=== PATIENT | female | born 1965 | race Caucasian/White ===

== ENCOUNTER 2023-06-01 20:46 | Emergency (ER) | payer MEDICAID ==
[2023-06-01] MEDS ORDERED: Sodium Chloride 0.9% 10 ML Syringe FLUSH PRN (20:51)
[2023-06-01 21:15] LABS: BASOPHILS PERCENT AUTO 0.6 % (0.2-1.5); EOSINOPHILS PERCENT AUTO 0.3 % (0.6-8.1); HEMATOCRIT 41.5 % (34.2-48.2); HEMOGLOBIN 14.5 g/dL (11.4-15.5); MEAN CORPUSCULAR HEMOGLOBIN 31.7 pg (23.9-33.9); MEAN CORPUSCULAR HGB CONC 34.9 g/dL (31.9-34.8); MEAN CORPUSCULAR VOLUME 90.9 fL (76.7-100.5); MEAN PLATELET VOLUME 6.8 fL (7.1-12.4); MONOCYTES ABSOLUTE AUTO 0.4 x10-3/uL (0.3-1.0); MONOCYTES PERCENT AUTO 4.4 % (4.4-15.7); NEUTROPHILS ABSOLUTE AUTO 5.3 x10-3/uL (1.5-6.3); NEUTROPHILS PERCENT AUTO 60.7 % (30.8-76.2); PLATELET COUNT,PLT 361 x10(3)uL (151-488); RED BLOOD CELL COUNT 4.57 x10(6)uL (3.60-5.20); RED CELL DISTRIBUTION WIDTH 12.9 % (12.3-16.5); WHITE BLOOD CELL COUNT,WBC 8.8 x10-3/uL (3.0-10.3)
[2023-06-01 21:19] LABS: BLOOD UREA NITROGEN,BUN 18 mg/dL (7-18); BUN/CREATININE RATIO 13.8 (9-20); CALCIUM 9.1 mg/dL (8.6-10.2); CARBON DIOXIDE,CO2 19 mmol/L (21-32); CHLORIDE,CL 101 mmol/L (100-110); CREATININE 1.3 mg/dL (0.55-1.02); EST CRCL DRUG DOSING (CG) 46.99 mL/min; ESTIMATED GFR 48 mL/min (>60); GLUCOSE RANDOM 251 mg/dL (80-116); POTASSIUM,K 3.4 mmol/L (3.5-5.3); SODIUM,NA 140 mmol/L (135-145)
[2023-06-01 21:28] LABS: INR 0.96 (1.00-1.24)
[2023-06-01] MEDS: Sodium Chloride 0.9% 1,000 ML IV SCH ×2 (21:30→22:09)
[2023-06-01 21:31] LABS: A/G RATIO 1.2; ALANINE AMINOTRANSFERASE,ALT 28 U/L (12-36); ALBUMIN 3.9 g/dL (3.5-5.2); ALKALINE PHOSPHATASE 149 IU/L (56-112); ASPARTATE AMNIOTRANSFERASE,AST 20 IU/L (5-25); BILIRUBIN TOTAL 0.5 mg/dL (0.1-1.3); PROTEIN TOTAL,TP 7.2 g/dL (6.0-8.0)
[2023-06-01 21:32] LABS: ETHANOL BLOOD MEDICAL 0.12 % (<0.03)
[2023-06-01] MEDS: Ondansetron 4 MG/2 ML SDV IVPUSH ONE (21:33)
[2023-06-01 21:34] LABS: TROPONIN I < 4.0 pg/mL (4.0-60.3)
[2023-06-01] MEDS: Magnesium Sulfate/Water 2 GM in Premix Bag 1 BAG IV ONE (21:57)
[2023-06-01] MEDS ORDERED: Magnesium Sulfate/Water 2 GM in Premix Bag 1 BAG IV ONE (22:00)
[2023-06-01] MEDS: Potassium Chloride 20 MEQ Tab.ER PO ONE (23:49)
== END 2023-06-02 00:12 | disposition home or self-care (01) ==
LOC: FB.ED 20:46
DX: R55 Syncope and collapse (principal); F10.129 Alcohol abuse with intoxication, unspecified; E86.0 Dehydration
CPT/HCPCS: 36415; 70450; 71045; 80053; 80307; 83735; 83880; 84484; 85025; 85610; 85730; 87040; 93005; 93010; 96365; 96366; 96375; 99284; 99285-25; A9270-GY; J2405; J3475; J7030

== ENCOUNTER 2023-10-19 14:29 | Emergency (ER) | payer OTHER, MEDICAID ==
[2023-10-19] MEDS: Ketorolac 30 MG/ML SDV IM ONE (15:02)
[2023-10-19] MEDS: Cyclobenzaprine 10 MG Tab PO ONE (15:02)
[2023-10-19] MEDS: traMADol 50 MG Tab PO ONE (15:03)
== END 2023-10-19 15:16 | disposition home or self-care (01) ==
LOC: FB.ED 14:29
DX: S20.211A Contusion of right front wall of thorax, initial encounter (principal); I10 Essential (primary) hypertension; E11.9 Type 2 diabetes mellitus without complications; Z79.899 Other long term (current) drug therapy; Z79.84 Long term (current) use of oral hypoglycemic drugs; Z88.5 Allergy status to narcotic agent; Z88.6 Allergy status to analgesic agent; V49.40XA Driver injured in collision with unspecified motor vehicles in traffic accident, initial encounter; Y92.410 Unspecified street and highway as the place of occurrence of the external cause
CPT/HCPCS: 96372; 99283; A9270; J1885

== ENCOUNTER 2024-04-13 07:48 | Day surgery (SDC) | payer MEDICAID ==
[~2024-04-13 07:48] MED LIST: Sodium Chloride 0.9% 10 ML Syringe FLUSH PRN
[2024-04-13] MEDS ORDERED: Midazolam 1 MG/ML 2 ML SDV IV ONE (07:49)
[2024-04-13] MEDS ORDERED: Ketamine 500 mg/10 ML MDV IV ONE (07:49)
[2024-04-13] MEDS ORDERED: Propofol 200 MG/20 ML SDV IV ONE (07:49)
[2024-04-13] MEDS ORDERED: Lidocaine 2% 100 MG/5 ML Syringe IVPUSH ONE (07:49)
[2024-04-13] MEDS: Lactated Ringers 1,000 ML IV SCH (09:10)
[2024-04-13] MEDS: Simethicone Drops 40 MG/0.6 ML 30 ML Bottle ONE (09:29)
== END 2024-04-13 10:42 | disposition home or self-care (01) ==
LOC: FB.SDS 07:48
PROVIDERS: ATTEND Surgery
DX: R63.4 Abnormal weight loss (principal); Z86.0100 Personal history of colon polyps, unspecified; E11.9 Type 2 diabetes mellitus without complications; I10 Essential (primary) hypertension; K21.9 Gastro-esophageal reflux disease without esophagitis; F41.8 Other specified anxiety disorders; E78.2 Mixed hyperlipidemia; Z68.27 Body mass index [BMI] 27.0-27.9, adult; Z87.891 Personal history of nicotine dependence; Z79.84 Long term (current) use of oral hypoglycemic drugs; Z79.899 Other long term (current) drug therapy; Z88.5 Allergy status to narcotic agent; Z91.041 Radiographic dye allergy status
CPT/HCPCS: 00811; 82947; A9270-GY; J2250; J2704; J3490; J7120

== ENCOUNTER 2024-06-19 21:32 | Emergency (ER) | payer MEDICAID ==
[2024-06-19 22:07] LABS: BASOPHILS ABSOLUTE AUTO 0.1 x10-3/uL (0.0-0.1); EOSINOPHILS PERCENT AUTO 0.5 % (0.6-8.1); HEMATOCRIT 43.7 % (34.2-48.2); LYMPHOCYTES ABSOLUTE AUTO 2.4 x10-3/uL (1.0-4.4); LYMPHOCYTES PERCENT AUTO 39.4 % (18.4-52.1); MEAN CORPUSCULAR HGB CONC 34.3 g/dL (31.9-34.8); MEAN CORPUSCULAR VOLUME 90.4 fL (76.7-100.5); MEAN PLATELET VOLUME 6.6 fL (7.1-12.4); MONOCYTES ABSOLUTE AUTO 0.5 x10-3/uL (0.3-1.0); MONOCYTES PERCENT AUTO 9.2 % (4.4-15.7); NEUTROPHILS PERCENT AUTO 49.9 % (30.8-76.2); PLATELET COUNT,PLT 350 x10(3)uL (151-488); RED BLOOD CELL COUNT 4.83 x10(6)uL (3.60-5.20); RED CELL DISTRIBUTION WIDTH 13.1 % (12.3-16.5)
[2024-06-19 22:10] LABS: BLOOD UREA NITROGEN,BUN 27 mg/dL (7-18); CALCIUM 9.3 mg/dL (8.6-10.2); CARBON DIOXIDE,CO2 23 mmol/L (21-32); CHLORIDE,CL 99 mmol/L (100-110); CREATININE 0.9 mg/dL (0.55-1.02); EST CRCL DRUG DOSING (CG) 52.04 mL/min; ESTIMATED GFR 75 mL/min (>60); GLUCOSE RANDOM 189 mg/dL (80-116); POTASSIUM,K 3.5 mmol/L (3.5-5.3); SODIUM,NA 136 mmol/L (135-145)
[2024-06-19 22:19] LABS: ALANINE AMINOTRANSFERASE,ALT 25 U/L (12-36); ALBUMIN 3.7 g/dL (3.5-5.2); ALKALINE PHOSPHATASE 117 IU/L (56-112); ASPARTATE AMNIOTRANSFERASE,AST 19 IU/L (5-25); BILIRUBIN TOTAL 0.5 mg/dL (0.1-1.3); PROTEIN TOTAL,TP 7.4 g/dL (6.0-8.0)
[2024-06-19] MEDS: Ketorolac 30 MG/ML SDV IM ONE (23:17)
[2024-06-19] MEDS: Oseltamivir 75 MG Cap PO ONE (23:18)
== END 2024-06-19 23:33 | disposition home or self-care (01) ==
LOC: FB.ED 21:32
DX: J10.1 Influenza due to other identified influenza virus with other respiratory manifestations (principal); I10 Essential (primary) hypertension; E78.00 Pure hypercholesterolemia, unspecified; E11.9 Type 2 diabetes mellitus without complications; Z88.5 Allergy status to narcotic agent; Z91.041 Radiographic dye allergy status; Z79.84 Long term (current) use of oral hypoglycemic drugs; Z79.899 Other long term (current) drug therapy
CPT/HCPCS: 36415; 71046; 80053; 85025; 87428; 96372; 99285; A9270; J1885

== ENCOUNTER 2025-01-03 12:55 | Emergency (ER) | payer OTHER ==
[2025-01-03 13:20] LABS: MEAN PLATELET VOLUME 6.7 fL (7.1-12.4); PLATELET COUNT,PLT 325 x10(3)uL (151-488); RED BLOOD CELL COUNT 5.04 x10(6)uL (3.60-5.20); RED CELL DISTRIBUTION WIDTH 13.1 % (12.3-16.5); WHITE BLOOD CELL COUNT,WBC 15.6 x10-3/uL (3.0-10.3)
[2025-01-03 13:29] LABS: INR 0.97 (1.00-1.24)
[2025-01-03 13:32] LABS: A/G RATIO 0.9; ALANINE AMINOTRANSFERASE,ALT 42 U/L (12-36); ASPARTATE AMNIOTRANSFERASE,AST 55 IU/L (5-25); BILIRUBIN TOTAL 1.2 mg/dL (0.1-1.3); BLOOD UREA NITROGEN,BUN 17 mg/dL (7-18); CHLORIDE,CL 97 mmol/L (100-110); CREATININE 1.3 mg/dL (0.55-1.02); EST CRCL DRUG DOSING (CG) 36.03 mL/min; ESTIMATED GFR 48 mL/min (>60); GLUCOSE RANDOM 214 mg/dL (80-116); POTASSIUM,K 3.7 mmol/L (3.5-5.3); PROTEIN TOTAL,TP 8.8 g/dL (6.0-8.0); SODIUM,NA 134 mmol/L (135-145)
[2025-01-03] MEDS: Ondansetron 4 MG/2 ML SDV IVPUSH ONE (13:32)
[2025-01-03 13:40] LABS: PRO B-TYPE NATRIUR PEPT,BNPPRO 350.0 pg/mL (<=125)
[2025-01-03 13:46] LABS: CARBON DIOXIDE,CO2 10 mmol/L (21-32)
[2025-01-03 13:47] LABS: BAND PERCENT MAN 2 % (0-6); LYMPHOCYTES PERCENT MAN 4 % (13-37); MONOCYTES PERCENT MAN 1 % (4-12); SEG NEUTROPHILS PERCENT MAN 93 % (46-82)
== END 2025-01-03 15:15 | disposition home or self-care (01) ==
LOC: FB.ED 12:55
DX: R11.2 Nausea with vomiting, unspecified (principal); F10.930 Alcohol use, unspecified with withdrawal, uncomplicated; I10 Essential (primary) hypertension; E78.00 Pure hypercholesterolemia, unspecified; E11.9 Type 2 diabetes mellitus without complications; R79.1 Abnormal coagulation profile; R06.9 Unspecified abnormalities of breathing; Z88.5 Allergy status to narcotic agent; Z88.8 Allergy status to other drugs, medicaments and biological substances; Z79.51 Long term (current) use of inhaled steroids; Z79.84 Long term (current) use of oral hypoglycemic drugs; Z79.899 Other long term (current) drug therapy; Y90.9 Presence of alcohol in blood, level not specified
CPT/HCPCS: 36415; 71045; 80053; 80307; 83605; 83690; 83880; 84484; 85025; 85610; 85730; 86140; 87426; 93005; 93010; 96361; 96374; 99284; 99285; J2405; J7030